=== PATIENT | female | born 1945 | race Caucasian/White ===

== ENCOUNTER 2021-01-08 22:54 | Emergency (ER) | payer MEDICARE, BC ==
[2021-01-09 00:01] LABS: #Eosinphils 0.5 10x3/uL (0.0-0.5); #Monocytes 0.6 10x3/uL (0.0-1.1); #Neutrophils 6.1 10x3/uL (1.5-8.4); %Basophils 0.2 % (0.0-2.0); %Eosinophils 5.2 % (0.0-6.0); %Lymphocytes 21.7 % (18.0-47.0); %Monocytes 6.5 % (0.0-10.0); %Neutrophils 66.1 % (40.0-75.0); Hemoglobin 13.2 g/dL (12.0-15.5); Mean Corpuscular HGB CONC 33.9 g/dL (32.0-36.0); Mean Corpuscular Volume 88.4 fl (81.6-98.3); Mean Platelet Volume 10.3 fl (7.4-10.4); Platelet Count 218 10x3/uL (150-450); RBC Distribution Width 12.8 % (11.5-14.5); White Blood Cell (WBC) Count 9.3 10x3/uL (3.5-10.5)
[2021-01-09 00:12] LABS: ALT (SGPT) 16 U/L (8-55); AST (SGOT) 25 U/L (5-34); Albumin 4.3 g/dL (3.4-4.8); Alkaline Phosphatase 73 U/L (40-110); Anion Gap 14 mmol/L (10-20); BUN (Urea Nitrogen) 19 mg/dL (9.8-20.1); Bilirubin, Total 0.9 mg/dL (0.2-1.2); Calc. Creatinine Clearance 0 mL/min (70-130); Calcium 9.5 mg/dL (7.8-10.44); Carbon Dioxide 23 mmol/L (23-31); Chloride 105 mmol/L (98-107); Glucose 128 mg/dL (83-110); Lipase 17 U/L (8-78); Potassium 3.5 mmol/L (3.5-5.1); Protein, Total 7.3 g/dL (5.8-8.1); Sodium 138 mmol/L (136-145)
[2021-01-09] MEDS ORDERED: Ondansetron PF 4 MG/2 ML Vial ONE (00:24)
[2021-01-09] MEDS ORDERED: Pantoprazole 40 MG VIAL ONE (00:25)
== END 2021-01-09 02:53 | disposition home or self-care (01) ==
LOC: CSHERS 22:54
DX: R11.2 Nausea with vomiting, unspecified (principal); R19.7 Diarrhea, unspecified; I10 Essential (primary) hypertension; J45.909 Unspecified asthma, uncomplicated; I25.2 Old myocardial infarction; H35.00 Unspecified background retinopathy; M34.9 Systemic sclerosis, unspecified; Z79.899 Other long term (current) drug therapy
CPT/HCPCS: 74176; 80053; 83690; 84484; 85025; 93005; 96374; 96375; C9113; J2405

== ENCOUNTER 2022-03-05 09:49 | Emergency (ER) | payer MEDICARE, BC | END 2022-03-05 12:16 | disposition home or self-care (01) | LOC: CSHERS 09:49 | DX: T63.461A Toxic effect of venom of wasps, accidental (unintentional), initial encounter (principal); M25.511 Pain in right shoulder; I10 Essential (primary) hypertension; K21.9 Gastro-esophageal reflux disease without esophagitis; I25.2 Old myocardial infarction | CPT/HCPCS: 99282 ==

== ENCOUNTER 2022-08-01 06:21 | Emergency (ER) | payer MEDICARE, BC | END 2022-08-01 08:09 | disposition home or self-care (01) | LOC: CSHERS 06:21 | DX: L03.115 Cellulitis of right lower limb (principal); I10 Essential (primary) hypertension; K21.9 Gastro-esophageal reflux disease without esophagitis | CPT/HCPCS: 99283 ==

== ENCOUNTER 2022-08-01 21:28 | Emergency (ER) | payer MEDICARE, BC | END 2022-08-02 00:32 | disposition left against medical advice (07) | LOC: CSHERS 21:28 | DX: Z53.21 Procedure and treatment not carried out due to patient leaving prior to being seen by health care provider (principal) ==

== ENCOUNTER 2023-02-04 00:05 | Emergency (ER) | payer MEDICARE, BC ==
[2023-02-04] MEDS ORDERED: Lidocaine Viscous Sol 2% 15 ml UD Cup ONE (01:12)
[2023-02-04] MEDS ORDERED: Clotrimazole 1% Cream 15 GM TUBE TOP SCH (01:15)
[2023-02-04] MEDS ORDERED: Lidocaine Viscous Sol 2% 15 ml UD Cup FS SCH (01:15)
== END 2023-02-04 01:24 | disposition home or self-care (01) ==
LOC: CSHERS 00:05
DX: L30.9 Dermatitis, unspecified (principal); K21.9 Gastro-esophageal reflux disease without esophagitis; Z79.899 Other long term (current) drug therapy
CPT/HCPCS: 99282

== ENCOUNTER 2023-03-21 23:59 | Emergency (ER) | payer MEDICARE, BC ==
[2023-03-22 00:43] LABS: #Basophils 0.1 10x3/uL (0.0-0.2); #Eosinphils 0.9 10x3/uL (0.0-0.5); #Monocytes 0.7 10x3/uL (0.0-1.1); #Neutrophils 2.6 10x3/uL (1.5-8.4); %Basophils 0.6 % (0.0-2.0); %Lymphocytes 46.3 % (18.0-47.0); %Monocytes 9.4 % (0.0-10.0); %Neutrophils 32.4 % (40.0-75.0); ALT (SGPT) 18 U/L (8-55); AST (SGOT) 25 U/L (5-34); Albumin 4.1 g/dL (3.4-4.8); Alkaline Phosphatase 70 U/L (40-110); Anion Gap 14 mmol/L (10-20); BUN (Urea Nitrogen) 24 mg/dL (9.8-20.1); Bilirubin, Total 0.5 mg/dL (0.2-1.2); Calc. Creatinine Clearance 0 mL/min (70-130); Calcium 9.8 mg/dL (7.8-10.44); Carbon Dioxide 25 mmol/L (23-31); Chloride 106 mmol/L (98-107); Estimated GFR 60; Globulin 3.2 g/dL (2.4-3.5); Glucose 116 mg/dL (83-110); Hemoglobin 12.6 g/dL (12.0-15.5); Mean Corpuscular Volume 88.3 fl (81.6-98.3); Mean Platelet Volume 10.3 fl (7.4-10.4); Platelet Count 263 10x3/uL (150-450); Potassium 3.6 mmol/L (3.5-5.1); Protein, Total 7.3 g/dL (5.8-8.1); RBC Distribution Width 13.1 % (11.5-14.5); Sodium 141 mmol/L (136-145); White Blood Cell (WBC) Count 7.9 10x3/uL (3.5-10.5)
== END 2023-03-22 02:05 | disposition home or self-care (01) ==
LOC: CSHERS 23:59
DX: R42 Dizziness and giddiness (principal); I10 Essential (primary) hypertension; K21.9 Gastro-esophageal reflux disease without esophagitis
CPT/HCPCS: 71045; 80053; 84484; 85025; 93005